=== PATIENT | female | born 1965 | race Caucasian/White ===

== ENCOUNTER 2018-04-26 12:55 | Inpatient (IN) | payer BC ==
[2018-04-26] MEDS ORDERED: IV RINGERS,LACTATED 1000ML 1,000 ML IV (14:38)
[2018-04-26] MEDS ORDERED: ROCURONIUM 50 MG/5 ML VIAL. (14:44)
[2018-04-26] MEDS ORDERED: SUCCINYLCHOLINE 200 MG/10 ML VIAL. (14:44)
[2018-04-26] MEDS ORDERED: fentaNYL PF VIAL 100 MCG/2 ML VIAL ×2 (14:44→16:31)
[2018-04-26] MEDS ORDERED: SEVOFLURANE 31 TO 60 MINUTES. IH (14:45)
[2018-04-26] MEDS ORDERED: ONDANSETRON PF 4 MG/2 ML VIAL. IV ×3 (14:45→16:15)
[2018-04-26] MEDS ORDERED: PROCHLORPERAZINE 10 MG/2 ML VIAL. IV ×2 (14:45)
[2018-04-26] MEDS ORDERED: LIDOCAINE 1% PF 2 ML VIAL. ID (14:45)
[2018-04-26] MEDS ORDERED: fentaNYL PF VIAL 100 MCG/2 ML VIAL IV ×3 (14:45)
[2018-04-26] MEDS ORDERED: DEXAMETHASONE SOD PHOS 20 MG/5 ML VIAL. (14:45)
[2018-04-26] MEDS ORDERED: MORPHINE SULFATE 2 MG/ML DISP.SYRIN. IV ×2 (14:45)
[2018-04-26] MEDS ORDERED: KETOROLAC 30 MG/ML INJ FOR OR. INJ (14:46)
[2018-04-26] MEDS ORDERED: PROPOFOL 20 ML IV (14:46)
[2018-04-26] MEDS ORDERED: ONDANSETRON PF 4 MG/2 ML VIAL. (14:46)
[2018-04-26] MEDS: LIDOCAINE 1% PF 2 ML VIAL. ID (14:58)
[2018-04-26] MEDS: IV RINGERS,LACTATED 1000ML 1,000 ML IV (14:59)
[2018-04-26] MEDS ORDERED: GLYCOPYRROLATE 1 MG/5 ML VIAL. (15:15)
[2018-04-26] MEDS ORDERED: NEOSTIGMINE 10 MG/10 ML VIAL. (15:15)
[2018-04-26] MEDS: BUPIVAC MPF-EPI 0.5%-1:200000 30 ML VIAL. (15:21)
[2018-04-26] MEDS ORDERED: 0.9 % SODIUM CHLORIDE 10 ML DISP.SYRIN. IV (16:15)
[2018-04-26] MEDS ORDERED: diphenhydrAMINE HCL 25 MG CAPSULE PO (16:15)
[2018-04-26] MEDS ORDERED: DEXTROSE 50% 25 GM / 50ML DISP.SYRIN. IV (16:15)
[2018-04-26] MEDS: ENOXAPARIN 40 MG/0.4 ML SYRINGE. SQ (16:15)
[2018-04-26] MEDS ORDERED: diphenhydrAMINE 50 MG/ML VIAL IV (16:15)
[2018-04-26] MEDS: fentaNYL PF VIAL 100 MCG/2 ML VIAL IV ×2 (16:35→17:01)
[2018-04-26] MEDS: POTASSIUM CL 20MEQ-0.45% NACL 1,000 ML IV (17:24)
[2018-04-26] MEDS: DOCUSATE SODIUM 100 MG CAPSULE. PO (20:07)
[2018-04-26] MEDS: oxyCODONE/APAP 5/325 1 TAB TABLET PO (20:09)
[2018-04-26] MEDS: MORPHINE SULFATE 10 MG/ML VIAL. IV (22:42)
[2018-04-27] MEDS: DOCUSATE SODIUM 100 MG CAPSULE. PO (08:19)
[2018-04-27] MEDS: ENOXAPARIN 40 MG/0.4 ML SYRINGE. SQ (08:20)
== END 2018-04-27 11:00 | disposition home or self-care (01) | DRG 343 ==
LOC: 4 NORTH 12:55
PROC: 0DTJ4ZZ Resection of Appendix, Percutaneous Endoscopic Approach (ICD-10-PCS; principal; 2018-04-26 14:30)
DX: K35.80 Unspecified acute appendicitis (principal); F41.9 Anxiety disorder, unspecified; I10 Essential (primary) hypertension; M54.5 Low back pain; K66.0 Peritoneal adhesions (postprocedural) (postinfection); Z83.3 Family history of diabetes mellitus; Z90.49 Acquired absence of other specified parts of digestive tract
CPT/HCPCS: 88304; A7015; J0330; J0690; J1100; J1650; J1885; J2270; J2405; J2704; J2710; J3010; J3490; J7030; J7120

== ENCOUNTER → 2019-06-06 | Outpatient (CLI) | payer BC ==
[2018-04-27 07:00] VITALS: BP 98/63
[~2019-06-06] MED LIST: CYCL5TAB PO; HYDR-2761 PO; IBUP-1060 PO; PROG100C15 PO
--- NOTE | 2019-06-06 14:55 | KCIC ---
MR of the left knee HISTORY: Left knee pain since January. Getting worse. TECHNIQUE: Routine multiplanar sequences are obtained. FINDINGS: Tear of the posterior horn of the medial meniscus. There is moderate medial subluxation of the meniscus. Small posterior horn fragment adjacent to the root is flipped superiorly towards the intercondylar notch. No evidence of lateral meniscal tear. The anterior and posterior cruciate ligaments are intact. Medial collateral ligament is intact. Iliotibial band unremarkable. Fibular collateral ligament, biceps femoris tendon and popliteus tendon are intact. The extensor mechanism is intact. Large joint effusion. Moderate chondromalacia of the patellofemoral joint. Diffuse chondral thinning at the medial femoral condyle with full-thickness chondral loss at the weightbearing aspect measuring about 7 mm diameter. Mild degenerative changes at the lateral joint compartment. No acute fracture or aggressive bone destruction. No significant Henderson's cyst. IMPRESSION: 1. Posterior horn medial meniscal tear with a small flipped fragment towards the intercondylar notch. Moderate medial subluxation of the meniscus. 2. Primary osteoarthritis. 3. Large joint effusion. Electronically signed by: Veto Dorado MD (06/06/2019 2:52 PM) [id number]
== END | disposition home or self-care (01) ==
LOC: KCIC MRI 13:01
PROVIDERS: ATTEND Physician Assistant Medical
DX: S83.192A Other subluxation of left knee, initial encounter (principal); S83.242A Other tear of medial meniscus, current injury, left knee, initial encounter; M17.12 Unilateral primary osteoarthritis, left knee; M25.462 Effusion, left knee; X58.XXXA Exposure to other specified factors, initial encounter; Y93.89 Activity, other specified; Y92.89 Other specified places as the place of occurrence of the external cause; Y99.8 Other external cause status
CPT/HCPCS: 73721

== ENCOUNTER → 2021-06-25 | Outpatient (CLI) | payer BC ==
[2018-04-27 07:00] VITALS: BP 98/63
--- NOTE | 2021-06-25 15:41 | KCIC ---
EXAM: Abdomen and pelvis CT without intravenous contrast. HISTORY: Pain. TECHNIQUE: Computed tomographic images of the abdomen and pelvis were obtained without contrast. Mult iplanar reformatting was performed. *One or more of the following individualized dose reduction techniques were utilized for this examina tion: 1. Automated exposure control. 2. Adjustment of the mA and/or kV according to patient size. 3. Use of iterative reconstruction technique. COMPARISON: 04/26/2018. FINDINGS: Evaluation of the lower thorax demonstrates a left lower lobe granuloma. There is no infilt rate or pleural effusion. No hepatic lesion is seen. The gallbladder, pancreas, spleen and adrenal gl ands are unremarkable. The appendix is surgically absent. There is a moderate amount stool within the proximal and mid colon . There is no evidence of bowel obstruction. There are few sigmoid diverticula. There is no evidence of diverticulitis. The bladder is unremarkable. There is a 3.1 cm right ovarian cyst. There are small left ovarian folli cles. There is a small amount of pelvic free fluid. There is a small amount of incidental gas within the endocervical canal. There is degenerative change involving the lower lumbar spine. There is a tiny fat-containing umbilic al hernia. There is no lymphadenopathy. IMPRESSION: 1. 3.1 cm right ovarian cyst and small left ovarian follicles. Given the suspected perimenopausal or postmenopausal status the patient, follow-up with a pelvic sonogram is recommended for characterizati on. 2. Sigmoid diverticulosis. 3. Tiny fat-containing umbilical hernia. Electronically signed by: Poly Rubio MD (06/25/2021 3:39 PM) [id number]
== END ==
LOC: KCIC CT 14:42
PROVIDERS: ATTEND Physician Assistant Medical
DX: K57.30 Diverticulosis of large intestine without perforation or abscess without bleeding (principal); N83.201 Unspecified ovarian cyst, right side; K42.9 Umbilical hernia without obstruction or gangrene; J84.10 Pulmonary fibrosis, unspecified
CPT/HCPCS: 74176